=== PATIENT | male | born 1935 | race Caucasian/White ===

== ENCOUNTER → 2016-07-28 | Outpatient (CLI) | payer OTHER ==
[2016-02-02 11:39] VITALS: BP 143/71
[2016-07-28 10:08] LABS: BASOPHILS % (AUTO) 0.4 % (0.2-1.0); EOSINOPHILS # (AUTO) 0.3 x10^3/uL (0.0-0.2); EOSINOPHILS % (AUTO) 4.8 % (0.9-2.9); HEMATOCRIT 40.6 % (42.0-54.0); HEMOGLOBIN 13.4 g/dL (13.5-18.0); LYMPHOCYTES # (AUTO) 1.4 X10^3/uL (1.3-2.9); LYMPHOCYTES % (AUTO) 20.9 % (21.0-51.0); MEAN CORPUSCULAR HEMOGLOBIN 31.6 pg (27.0-34.0); MEAN CORPUSCULAR HGB CONC 33.1 g/dL (33.0-35.0); MEAN CORPUSCULAR VOLUME 95.5 fL (80.0-100.0); MEAN PLATELET VOLUME 9.4 fL (7.4-11.0); MONOCYTES # (AUTO) 0.6 x10^3/uL (0.3-0.8); MONOCYTES % (AUTO) 9.1 % (0.0-13.0); NEUTROPHILS # (AUTO) 4.4 x10^3/uL (2.2-4.8); NEUTROPHILS % (AUTO) 64.8 % (42.0-75.0); PLATELET COUNT 122 X10^3/uL (150.0-450.0); RED BLOOD COUNT 4.25 X10^6/uL (4.7-6.0); RED CELL DISTRIBUTION WIDTH 15.6 % (11.6-16.5); WHITE BLOOD COUNT 6.7 X10^3/uL (3.6-10.0)
[2016-07-28 10:16] LABS: HEMOGLOBIN A1C 8.3 % (4.5-6.2)
[2016-07-28 10:18] LABS: CREATININE,URINE 65.23 mg/dL (40-278)
[2016-07-28 10:23] LABS: ALBUMIN 3.3 g/dL (3.4-5.0); C-REACTIVE PROTEIN 5.2 mg/L (0-3.0); CALCIUM 9.2 mg/dL (8.5-10.1); CARBON DIOXIDE 27.3 mmol/L (21-32); CHOL/HDL RATIO 3.6 (0.0-5.0); COR CA(FOR HYPOALB) 9.8 mg/dL (8.5-10.1); CREATININE 1.93 mg/dL (0.70-1.30); TOTAL PROTEIN 7.3 g/dL (6.4-8.2); URIC ACID 7.6 mg/dL (3.5-7.2)
[2016-07-28 10:43] LABS: TOTAL PSA 7.3 ng/mL (0.13-4.0)
[2016-07-28 10:55] LABS: ERYTHROCYTE SEDIMENTATION RATE 8 MM/HOUR (0-15)
== END ==
LOC: LAB 09:23
PROVIDERS: ATTEND Nurse Practitioner Family
DX: E11.40 Type 2 diabetes mellitus with diabetic neuropathy, unspecified (principal); I10 Essential (primary) hypertension; R97.20 Elevated prostate specific antigen [PSA]; M10.9 Gout, unspecified
CPT/HCPCS: 36415; 80053; 80061; 82043; 83036; 84153; 84550; 85025; 85652; 86140

== ENCOUNTER 2016-08-09 09:14 | Emergency (ER) | payer OTHER ==
[2016-08-09 09:20] VITALS: BP 88/57; BMI 25.3
--- NOTE | 2016-08-09 09:30 | DR.GENAD ---
HPI - PCP Primary Care Physician: constance - HPI Comment HPI Comment: WORSE TODAY. PATIENT ON PAIN MEDICATION AT HOME BUT STILL IN PAIN. NO NEW INJURY. - Complaint/Symptoms Chief Complaint Doctors Comments: FELL 3 WEEKS AGO. LT KNEE AND LEFT HIP PAIN SINCE. Chief Complaint:: family stated he fell 2-3 weeks ago and has been having right hip and right knee pain. - Nurses notes reviewed Nurses Notes Review: Yes - Source History Provided: Family Member - Mode of Arrival Mode of Arrival: Wheelchair - Timing Onset of Chief Complaint: 07/19/16 Came on: Suddenly - Duration Duration: Constant Duration: Days - Severity Severity: Moderate PMH - PMH Past Medical History: Yes Past Medical History: Arthritis, Asthma, COPD, Coronary Artery Disease, Dementia , Diabetes, Dyslipidemia, Hypertension, [place] Past Surgical History: Yes Surgical History: Angioplasty/Stents, CABG/Valve Surgery, Ortho Surgery, Tonsillectomy - Family History History of Family Medical Conditions: Yes Family Medical History: Diabetes Mellitus, [place], Coronary Artery Disease - Social History Does patient currently use any type of tobacco product: No Have you used tobacco products in the last 12 months: No Type of Tobacco Use: None Does any household member use tobacco: No Alcohol Use: None Do you use any recreational Drugs:: No Lives With: Family Lives Where: Home - infectious screening In the last 2 months have you had wt loss of >10#?: NO Have you had fever, night sweats or hemotysis?: No Have you traveled outside the country in the last 6 months?: No Isolation: Standard ROS - Review of Systems Constitutional: Weakness, Fatigue. negative: Chills, Diaphoresis, Fever, Loss of Appetite Eyes: No Symptoms Reported. negative: Eye Pain, Discharge ENTM: negative: Ear Pain, Nose Discharge, Nose Congestion, Throat Pain Respiratoy: Short of Breath. negative: Productive Cough, Non-Productive Cough, Wheezing, Hemoptysis Cardiovascular: negative: Chest Pain Gastrointestinal/Abdominal: No Symptoms Reported. negative: Abdominal Pain, Nausea, Vomiting Genitourinary: negative: Dysuria, Hematuria Neurological: Weakness Musculoskeletal: Joint Pain, Joint Swelling, Muscle Pain Integumentary: No Symptoms Reported Hematologic/Lymphatic: Easy Bruising Endocrine: No Symptoms Reported All Other Systems: Reviewed and Negative PE - Vital Signs Vitals: Temperature 98.7 F Pulse Rate 59 Respiratory Rate 16 Blood Pressure [Right Arm] 181/97 Blood Pressure [Left Arm] 133/81 Blood Pressure 88/57 O2 Sat by Pulse Oximetry 100 - General Limitations: No Limitations General Appearance: Alert - Head Head Exam: Normal Inspection - Eyes Eye exam: Normal Appearance - ENT ENT Exam: Normal External Ear Exam External Ear Exam: Normal External Inspection TM/Canal Exam: Bilateral Normal Nose Exam: Normal Nose Exam Mouth Exam: Normal Inspection Throat Exam: Normal Inspection - Neck Neck Exam: Trachea Midline - Chest Chest Inspection: Symmetric Chest Wall Rise - Respiratory Respiratory Exam: Respiratory Distress. negative: Chest Wall Tenderness Respiratory Exam: Bilateral Rhonchi, Lower Rhonchi - Cardiovascular Cardiovascular Exam: Regular Rate, Normal Rhythm, Normal Heart Sounds - Abdominal Exam Abdominal Exam: Normal Bowel Sounds, Soft. negative: Tenderness - Extremities Extremities Exam: Tenderness (LEFT KNEE AND HIP), Joint Swelling (LEFT KNEE) - Back Back Exam: Paraspinal Tenderness - Neurologic Neurological Exam: Alert - Psychiatric Psychiatric Exam: Normal Affect, Normal Mood - Skin Skin Exam: Erythema (STASIS DERMATITIS.) MDM - Additional Information Additional Information Obtained From: Family - Differential Diagnosis Differential Diagnosis: RIGHT HIP PAIN, RIGHT KNEE PAIN, LOW BLOOD PRESSURE IN ED. Course - Treatment Treatment: SEE ORDERS - Education/Counseling Education/Counseling: Patient, Family, Education Educated On: Treatment, Diagnosis, Needs for Follow Up ROR - Labs Reviewed Laboratory Results Reviewed?: Yes Result Diagrams: 08/09/16 09:30 08/09/16 09:30 Laboratory: WBC 7.3 X10^3/uL (3.6-10.0) 08/09/16 09:30 RBC 4.33 X10^6/uL (4.7-6.0) L 08/09/16 09:30 Hgb 13.6 g/dL (13.5-18.0) 08/09/16 09:30 Hct 41.3 % (42.0-54.0) L 08/09/16 09:30 MCV 95.3 fL (80.0-100.0) 08/09/16 09:30 MCH 31.4 pg (27.0-34.0) 08/09/16 09:30 MCHC 33.0 g/dL (33.0-35.0) 08/09/16 09:30 RDW 14.8 % (11.6-16.5) 08/09/16 09:30 Plt Count 118 X10^3/uL (150.0-450.0) L 08/09/16 09:30 MPV 9.4 fL (7.4-11.0) 08/09/16 09:30 Neut % 62.5 % (42.0-75.0) 08/09/16 09:30 Lymph % 24.2 % (21.0-51.0) 08/09/16 09:30 [place] % 8.1 % (0.0-13.0) 08/09/16 09:30 Eos % 4.7 % (0.9-2.9) H 08/09/16 09:30 Baso % 0.5 % (0.2-1.0) 08/09/16 09:30 Neut # 4.6 x10^3/uL (2.2-4.8) 08/09/16 09:30 Lymph # 1.8 X10^3/uL (1.3-2.9) 08/09/16 09:30 [place] # 0.6 x10^3/uL (0.3-0.8) 08/09/16 09:30 Eos # 0.3 x10^3/uL (0.0-0.2) H 08/09/16 09:30 Baso # 0.0 X10^3/uL (0.0-0.1) 08/09/16 09:30 Absolute Nucleated RBC 0.0 /100WBC 08/09/16 09:30 Sodium 142 mmol/L (136-145) 08/09/16 09:30 Corrected Sodium 143 mmol/L (136-145) 08/09/16 09:30 Potassium 4.2 mmol/L (3.5-5.1) 08/09/16 09:30 Chloride 106 mmol/L (98-107) 08/09/16 09:30 Carbon Dioxide 26.3 mmol/L (21-32) 08/09/16 09:30 BUN 35 mg/dL (7-18) H 08/09/16 09:30 Creatinine 1.90 mg/dL (0.70-1.30) H 08/09/16 09:30 Est GFR (MDRD) Af Amer 44 (>60) L 08/09/16 09:30 Est GFR (MDRD) Non-Af 36 (>60) L 08/09/16 09:30 Glucose 129 mg/dL (65-99) H 08/09/16 09:30 Calcium 9.4 mg/dL (8.5-10.1) 08/09/16 09:30 Corrected Calcium 10.0 mg/dL (8.5-10.1) 08/09/16 09:30 Total Bilirubin 0.80 mg/dL (0.2-1.0) 08/09/16 09:30 AST 22 Units/L (15-37) 08/09/16 09:30 ALT 24 Units/L (12-78) 08/09/16 09:30 Alkaline Phosphatase 192 Units/L (46-116) H 08/09/16 09:30 Creatine Kinase 52 Units/L (39-308) 08/09/16 09:30 CK-MB (CK-2) 1.3 ng/mL (0-4.0) 08/09/16 09:30 CK/CKMB % Calc 2.5 % (<4) 08/09/16 09:30 Troponin I 0.03 ng/mL (0-1.5) 08/09/16 09:30 B-Natriuretic Peptide 84.9 pg/mL (0-79) H 08/09/16 09:30 Total Protein 7.1 g/dL (6.4-8.2) 08/09/16 09:30 Albumin 3.3 g/dL (3.4-5.0) L 08/09/16 09:30 Globulin 3.8 g/dL (2.5-4.5) 08/09/16 09:30 Albumin/Globulin Ratio 0.9 Ratio (1.1-2.1) L 08/09/16 09:30 - XRAY XRAY Interpreted by: Radiologist XRAY Findings: REPORT DISCUSS WITH PATIENT AND HIS . - EKG Rhythm: NSR (EKG NOTED) - Diagnosis Discharge Problem: Left hip pain Left knee pain Qualifiers: Chronicity: acute Qualified Code(s): M25.562 - Pain in left knee - Discharge Plan Disposition: HOME, SELF-CARE Condition: Stable - Follow ups/Referrals Follow ups/Referrals: Damon Coronado [Primary Care Provider] - 3 days - Instructions Instructions: Hip Pain, Knee Pain, [id number] Additional Instructions: RETURN TO ED IF WORSE. CONTINUE WITH PAIN MED AT HOME.
[2016-08-09 09:47] LABS: BASOPHILS % (AUTO) 0.5 % (0.2-1.0); EOSINOPHILS # (AUTO) 0.3 x10^3/uL (0.0-0.2); EOSINOPHILS % (AUTO) 4.7 % (0.9-2.9); HEMATOCRIT 41.3 % (42.0-54.0); HEMOGLOBIN 13.6 g/dL (13.5-18.0); LYMPHOCYTES # (AUTO) 1.8 X10^3/uL (1.3-2.9); LYMPHOCYTES % (AUTO) 24.2 % (21.0-51.0); MEAN CORPUSCULAR HEMOGLOBIN 31.4 pg (27.0-34.0); MEAN CORPUSCULAR VOLUME 95.3 fL (80.0-100.0); MEAN PLATELET VOLUME 9.4 fL (7.4-11.0); MONOCYTES # (AUTO) 0.6 x10^3/uL (0.3-0.8); MONOCYTES % (AUTO) 8.1 % (0.0-13.0); NEUTROPHILS # (AUTO) 4.6 x10^3/uL (2.2-4.8); NEUTROPHILS % (AUTO) 62.5 % (42.0-75.0); PLATELET COUNT 118 X10^3/uL (150.0-450.0); RED BLOOD COUNT 4.33 X10^6/uL (4.7-6.0); RED CELL DISTRIBUTION WIDTH 14.8 % (11.6-16.5); WHITE BLOOD COUNT 7.3 X10^3/uL (3.6-10.0)
[2016-08-09 10:00] LABS: CALCIUM 9.4 mg/dL (8.5-10.1); CARBON DIOXIDE 26.3 mmol/L (21-32); CREATININE 1.9 mg/dL (0.70-1.30); TROPONIN I 0.03 ng/mL (0-1.5)
[2016-08-09 10:04] LABS: ALBUMIN 3.3 g/dL (3.4-5.0); CKMB % 2.5 % (<4); CREATINE KINASE MB 1.3 ng/mL (0-4.0); TOTAL PROTEIN 7.1 g/dL (6.4-8.2)
--- NOTE | 2016-08-09 10:17 | RAD ---
HISTORY: Chest pain. Hypotension. Study: Single-view chest. Comparison: February 02, 2016 and April 03, 2015 Findings: The trachea is midline. The cardiac silhouette is within normal limits. There is a cardiac loop zayra rder on the left. There is a dual lead cardiac pacing device on the right. There has been previous m edian sternotomy and CABG. The lungs are underinflated with crowding of the interstitium and central pulmonary vasculature. There are unchanged patchy nonspecific opacities in both lung bases without pleural effusion or pneumothorax. The bony thorax is grossly unremarkable. IMPRESSION: Underinflated exam without acute cardiopulmonary process is evident. Patchy nonspecific bibasilar op acities are grossly unchanged. Reported By:
[2016-08-09 10:18] LABS: B-TYPE NATRIURETIC PEPTIDE 84.9 pg/mL (0-79)
--- NOTE | 2016-08-09 10:33 | RAD ---
HISTORY: Right knee pain. Complete two view series of the right knee joint. Findings: Examination of the knee joint demonstrate no evidence for acute fracture or dislocation. The medial and lateral tibiofemoral compartments demonstrate advanced and severe joint space narrowing and ost eophyte formation; most severe in the lateral knee compartment. There is also a degenerative appeari ng genu valgum deformity. The findings are compatible with moderate to severe degenerative joint dis ease. The lateral radiograph demonstrates a very small suprapatellar joint effusion. Patellofemora l compartment also shows moderate to severe DJD with chondromalacia patella. There is mild soft tiss ue swelling about the knee joint without underlying bony injury or fracture seen. No aggressive / de structive lytic bony lesions are seen. 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 No displaced fra cture, subluxation, or lytic bony lesion. Reported By:
--- NOTE | 2016-08-09 10:39 | RAD ---
HISTORY: Injury, fall, right hip pain Study: Right hip two view Comparison: None Findings: The pelvic bones and SI joints are intact. The hip joints are intact bilaterally. Mild degenerative joint space narrowing is present in both hips. No hip fractures are identified. No joint erosions ar e present. If the patient continues to be symptomatic CT or MRI could be obtained in order to detect a fracture that is radiographically occult. IMPRESSION: Degenerative joint space narrowing No definite fracture identified Reported By:
[2016-08-09] MEDS ORDERED: ZOFRAN INJ 4 MG VIAL IVP ONE (12:14)
[2016-08-09] MEDS ORDERED: MORPHINE SULFATE INJ 4 MG IVP ONE (12:14)
[2016-08-09] MEDS ORDERED: DECADRON INJ IV ONE (12:15)
[2016-08-09] MEDS ORDERED: DECADRON INJ ONE (12:18)
[2016-08-09] MEDS ORDERED: MORPHINE SULFATE INJ 4 MG ONE (12:18)
[2016-08-09] MEDS ORDERED: ZOFRAN INJ 4 MG VIAL ONE (12:18)
== END 2016-08-09 12:30 | disposition home or self-care (01) ==
LOC: ER 09:14
DX: M25.552 Pain in left hip (principal); M25.562 Pain in left knee; W19.XXXA Unspecified fall, initial encounter
CPT/HCPCS: 36415; 71010; 73501; 73560; 80053; 82550; 82553; 83880; 84484; 85025; 93005; 93010; 96365; 96374; 96375; 99282; 99283; A4222; J1100; J2270; J2405

== ENCOUNTER 2016-08-13 10:07 | Emergency (ER) | payer OTHER ==
[2016-08-13 10:16] VITALS: BP 129/66; BMI 23.6
[2016-08-13] MEDS ORDERED: NS 1000 ML 1,000 ML ONE (10:30)
--- NOTE | 2016-08-13 10:34 | DR.GENAD ---
HPI - PCP Primary Care Physician: Dr. Coronado - Complaint/Symptoms Chief Complaint Doctors Comments: Patient with urine incontinence for the past two days with fever yesterday and a 99.9 temp today as related by family member. States he fell last week with right knee and right hip pain with patient having problems walking since fall. Patient has Parkinson Disease and his say he has not been able to walk and her son had to pick him up and put him in the car to night. States he has had decreased appetite but denies epi,hematuria or chest pain. States he is seeing a vasacular surgeon for poor circulation in his left leg. states he is a patient of Dr. Coronado. Chief Complaint:: family stated patient has had a fever for the last 2 days and yesterday he started not being able to control his urination patient also was told last week he has no circulation to his left leg - Nurses notes reviewed Nurses Notes Review: Yes - Source History Provided: Family Member - Mode of Arrival Mode of Arrival: Wheelchair - Timing Onset of Chief Complaint: 08/11/16 Came on: Suddenly - Duration Duration: Constant How lon Duration: Days - Location Location: right knee and hip - Severity Severity: Moderate - Modifying Factors Worsens:: movement and palpation Improves:: nothing PMH - PMH Past Medical History: Yes Past Medical History: Arthritis, Asthma, COPD, Coronary Artery Disease, Dementia , Diabetes, Dyslipidemia, Hypertension, [place] Past Medical History Comment: parkinson Past Surgical History: Yes Surgical History: Angioplasty/Stents, CABG/Valve Surgery, Ortho Surgery, Tonsillectomy - Family History History of Family Medical Conditions: Yes Family Medical History: Diabetes Mellitus, [place], Coronary Artery Disease - Social History Does patient currently use any type of tobacco product: No Have you used tobacco products in the last 12 months: No Does any household member use tobacco: No Alcohol Use: None Do you use any recreational Drugs:: No Lives With: Family Lives Where: Home - infectious screening In the last 2 months have you had wt loss of >10#?: NO Have you had fever, night sweats or hemotysis?: No Have you traveled outside the country in the last 6 months?: No Isolation: Standard ROS - Review of Systems Constitutional: No Symptoms Reported, Fever, Weakness, Fatigue, Loss of Appetite. negative: See HPI, Chills, Diaphoresis, Malaise, Irritable, Other Eyes: No Symptoms Reported. negative: See HPI, Eye Pain, Blurred Vision, Tearing, Discharge, Photophobia, Diplopia, Other ENTM: No Symptoms Reported Respiratoy: No Symptoms Reported Cardiovascular: No Symptoms Reported. negative: See HPI, Chest Pain, Edema, Palpitations, Syncope, Cyanosis, Skin Mottling, Other Gastrointestinal/Abdominal: No Symptoms Reported, See HPI Genitourinary: No Symptoms Reported, See HPI, Discharge, Dysuria, Frequency, Hematuria, Pain, Bleeding, Other Neurological: No Symptoms Reported, Weakness, Problems Walking, Speech Problem Musculoskeletal: No Symptoms Reported Integumentary: No Symptoms Reported Hematologic/Lymphatic: No Symptoms Reported Endocrine: No Symptoms Reported, Decreased Appetite Psychiatric: No Symptoms Reported PE - Vital Signs Vitals: Temperature 99.1 F Pulse Rate 81 Respiratory Rate 20 Blood Pressure [Right Arm] 181/97 Blood Pressure [Left Arm] 133/81 Blood Pressure 129/66 O2 Sat by Pulse Oximetry 98 Course - Reevaluation 1st: Improved - Consultation Called: 13:07 Call Returned: 13:07 (Dr. Dumont accepted patient in transfer to ER) - Education/Counseling Education/Counseling: Patient, Family Educated On: Treatment, Diagnosis, Prognosis, Needs for Follow Up ROR - Labs Reviewed Laboratory Results Reviewed?: Yes (All labs and x-ray results reviewed and discussed with patient and ) Result Diagrams: 08/13/16 10:30 08/13/16 10:30 Laboratory: WBC 10.2 X10^3/uL (3.6-10.0) H 08/13/16 10:30 RBC 4.25 X10^6/uL (4.7-6.0) L 08/13/16 10:30 Hgb 13.5 g/dL (13.5-18.0) 08/13/16 10:30 Hct 40.4 % (42.0-54.0) L 08/13/16 10:30 MCV 95.2 fL (80.0-100.0) 08/13/16 10:30 MCH 31.7 pg (27.0-34.0) 08/13/16 10:30 MCHC 33.4 g/dL (33.0-35.0) 08/13/16 10:30 RDW 15.0 % (11.6-16.5) 08/13/16 10:30 Plt Count 99 X10^3/uL (150.0-450.0) L 08/13/16 10:30 MPV 9.9 fL (7.4-11.0) 08/13/16 10:30 Neut % 82.1 % (42.0-75.0) H 08/13/16 10:30 Lymph % 8.5 % (21.0-51.0) L 08/13/16 10:30 [place] % 8.7 % (0.0-13.0) 08/13/16 10:30 Eos % 0.4 % (0.9-2.9) L 08/13/16 10:30 Baso % 0.3 % (0.2-1.0) 08/13/16 10:30 Neut # 8.3 x10^3/uL (2.2-4.8) H 08/13/16 10:30 Lymph # 0.9 X10^3/uL (1.3-2.9) L 08/13/16 10:30 [place] # 0.9 x10^3/uL (0.3-0.8) H 08/13/16 10:30 Eos # 0.0 x10^3/uL (0.0-0.2) 08/13/16 10:30 Baso # 0.0 X10^3/uL (0.0-0.1) 08/13/16 10:30 Absolute Nucleated RBC 0.0 /100WBC 08/13/16 10:30 INR Target Range - 08/13/16 10:30 INR 1.03 (0.8-1.3) 08/13/16 10:30 PTT 31.6 SECONDS (22.9-36.5) 08/13/16 10:30 PTT Comment - 08/13/16 10:30 Sodium 139 mmol/L (136-145) 08/13/16 10:30 Corrected Sodium 141 mmol/L (136-145) 08/13/16 10:30 Potassium 4.1 mmol/L (3.5-5.1) 08/13/16 10:30 Chloride 104 mmol/L (98-107) 08/13/16 10:30 Carbon Dioxide 25.3 mmol/L (21-32) 08/13/16 10:30 BUN 33 mg/dL (7-18) H 08/13/16 10:30 Creatinine 2.05 mg/dL (0.70-1.30) H 08/13/16 10:30 Est GFR (MDRD) Af Amer 40 (>60) L 08/13/16 10:30 Est GFR (MDRD) Non-Af 33 (>60) L 08/13/16 10:30 Glucose 182 mg/dL (65-99) H 08/13/16 10:30 Calcium 9.0 mg/dL (8.5-10.1) 08/13/16 10:30 Corrected Calcium 9.8 mg/dL (8.5-10.1) 08/13/16 10:30 Magnesium 1.6 mg/dL (1.7-2.9) L 08/13/16 10:30 Total Bilirubin 1.50 mg/dL (0.2-1.0) H 08/13/16 10:30 AST 25 Units/L (15-37) 08/13/16 10:30 ALT 31 Units/L (12-78) 08/13/16 10:30 Alkaline Phosphatase 172 Units/L (46-116) H 08/13/16 10:30 Creatine Kinase 52 Units/L (39-308) 08/13/16 10:30 CK-MB (CK-2) < 1.0 ng/mL (0-4.0) 08/13/16 10:30 CK/CKMB % Calc 1.9 % (<4) 08/13/16 10:30 Troponin I 0.04 ng/mL (0-1.5) 08/13/16 10:30 Total Protein 6.8 g/dL (6.4-8.2) 08/13/16 10:30 Albumin 3.0 g/dL (3.4-5.0) L 08/13/16 10:30 Globulin 3.8 g/dL (2.5-4.5) 08/13/16 10:30 Albumin/Globulin Ratio 0.8 Ratio (1.1-2.1) L 08/13/16 10:30 Specimen Type Catherized urine 08/13/16 10:50 Urine Color Yellow (YELLOW) 08/13/16 10:50 Urine Appearance Hazy (CLEAR) 08/13/16 10:50 Urine pH 5.0 (5.0 - 8.0) 08/13/16 10:50 Ur Specific [place] 1.015 (1.000-1.030) 08/13/16 10:50 Urine Protein 2+ (NEGATIVE) 08/13/16 10:50 Urine Glucose (UA) Negative (NEGATIVE) 08/13/16 10:50 Urine Ketones Negative (NEGATIVE) 08/13/16 10:50 Urine Occult Blood 4+ (NEGATIVE) 08/13/16 10:50 Urine Nitrite Positive (NEGATIVE) 08/13/16 10:50 Urine Bilirubin Negative (NEGATIVE) 08/13/16 10:50 Urine Urobilinogen 1+ (NORMAL) 08/13/16 10:50 Ur Leukocyte Esterase 3+ (NEGATIVE) 08/13/16 10:50 Urine RBC 0-2 /HPF (NEGATIVE) 08/13/16 10:50 Urine WBC 50-75 /HPF (NEGATIVE) 08/13/16 10:50 Ur Squamous Epith Cells Negative /HPF (NEGATIVE) 08/13/16 10:50 Urine Bacteria Trace /HPF (NEGATIVE) 08/13/16 10:50 Ur Culture Indicated? Yes/culture set up 08/13/16 10:50 - XRAY XRAY Interpreted by: Radiologist (CT cervical spine:Findings suspicious for rotatory subluxation of C1-2) XRAY Findings: right knee: Advanced and severe right knee joint tricompartmental osteoarth - Diagnosis Discharge Problem: Subluxation of C1/c2 cervical vertebrae, initial encounter, Degenerative arthritis of cervical spine, Left hemiparesis, Urinary tract infection, Hyperglycemia, Peripheral vascular disease Fall Qualifiers: Encounter type: initial encounter Qualified Code(s): W19.XXXA - Unspecified fall, initial encounter Chronic kidney disease Qualifiers: Chronic kidney disease stage: stage 3 (moderate) Qualified Code(s): N18.3 - Chronic kidney disease, stage 3 (moderate) - Discharge Plan Disposition: 63 DIS ACTUE [facility] CARE Condition: Stable - Follow ups/Referrals Follow ups/Referrals: Damon Coronado [Primary Care Provider] - 3 days - Instructions
[2016-08-13 10:50] LABS: BASOPHILS % (AUTO) 0.3 % (0.2-1.0); EOSINOPHILS % (AUTO) 0.4 % (0.9-2.9); HEMATOCRIT 40.4 % (42.0-54.0); HEMOGLOBIN 13.5 g/dL (13.5-18.0); LYMPHOCYTES # (AUTO) 0.9 X10^3/uL (1.3-2.9); LYMPHOCYTES % (AUTO) 8.5 % (21.0-51.0); MEAN CORPUSCULAR HEMOGLOBIN 31.7 pg (27.0-34.0); MEAN CORPUSCULAR HGB CONC 33.4 g/dL (33.0-35.0); MEAN CORPUSCULAR VOLUME 95.2 fL (80.0-100.0); MEAN PLATELET VOLUME 9.9 fL (7.4-11.0); MONOCYTES # (AUTO) 0.9 x10^3/uL (0.3-0.8); MONOCYTES % (AUTO) 8.7 % (0.0-13.0); NEUTROPHILS # (AUTO) 8.3 x10^3/uL (2.2-4.8); NEUTROPHILS % (AUTO) 82.1 % (42.0-75.0); PLATELET COUNT 99 X10^3/uL (150.0-450.0); RED BLOOD COUNT 4.25 X10^6/uL (4.7-6.0); WHITE BLOOD COUNT 10.2 X10^3/uL (3.6-10.0)
[2016-08-13 10:56] LABS: BILIRUBIN,URINE NEGATIVE (NEGATIVE); BLOOD/HEMOGLOBIN,URINE 4+ (NEGATIVE); GLUCOSE, URINE NEGATIVE (NEGATIVE); KETONES,URINE NEGATIVE (NEGATIVE); LEUKOCYTE ESTERASE ,URINE 3+ (NEGATIVE); NITRITES,URINE POSITIVE (NEGATIVE); PROTEIN,URINE 2+ (NEGATIVE); UROBILINOGEN,URINE 1+ (NORMAL)
[2016-08-13] MEDS ORDERED: NS 1000 ML 1,000 ML IV SCH (11:00)
[2016-08-13 11:03] LABS: BLOOD UREA NITROGEN 33 mg/dL (7-18); CARBON DIOXIDE 25.3 mmol/L (21-32); CHLORIDE 104 mmol/L (98-107); COR NA(FOR HYPERGLY) 141 mmol/L (136-145); CREATININE 2.05 mg/dL (0.70-1.30); GLUCOSE 182 mg/dL (65-99); SODIUM 139 mmol/L (136-145); TROPONIN I 0.04 ng/mL (0-1.5); eGFR BLACK RACES 40 (>60); eGFR NON BLACK RACES 33 (>60)
[2016-08-13 11:07] LABS: ALANINE AMINOTRANSFERASE 31 Units/L (12-78); ALKALINE PHOSPHATASE 172 Units/L (46-116); ASPARTATE AMINO TRANSFERASE 25 Units/L (15-37); COR CA(FOR HYPOALB) 9.8 mg/dL (8.5-10.1); CREATINE KINASE 52 Units/L (39-308); CREATINE KINASE MB < 1.0 ng/mL (0-4.0); MAGNESIUM 1.6 mg/dL (1.7-2.9); TOTAL PROTEIN 6.8 g/dL (6.4-8.2)
[2016-08-13 11:09] LABS: CKMB % 1.9 % (<4)
[2016-08-13 11:16] LABS: APPEARANCE,URINE HAZY (CLEAR); BACTERIA,URINE TRACE /HPF (NEGATIVE); COLOR,URINE YELLOW (YELLOW); RBC,URINE 0-2 /HPF (NEGATIVE); SQUAMOUS EPITHELIAL CELL,UR NEGATIVE /HPF (NEGATIVE)
[2016-08-13] MEDS ORDERED: LEVAQUIN PREMIX IV 500 MG 500 MG/100 ML BAG IV ONE ×2 (11:27→13:31)
--- NOTE | 2016-08-13 12:07 | CT ---
HISTORY: Fall, AMS, weakness Study: Noncontrast CT brain Comparison: 01/14 and February 02, 2016. Technique: non contrasted CT images of the brain are reviewed in axial, coronal and sagittal planes. Dose reduction techniques utilized automatic exposure control. Findings: The bony calvarium is intact. Atrophic changes are present with prominent ventricles and accentuatio n of cortical sulci. There is no evidence of edema, mass or hemorrhage. No midline shift is seen. At rophic changes are also present involving the cerebellum. There are again changes of periventricular and subcortical microangiopathy. IMPRESSION: No acute intracranial abnormality. Reported By:
--- NOTE | 2016-08-13 12:24 | CT ---
HISTORY: Status post fall with weakness Study: CT cervical spine without contrast Comparison: No prior CT Technique: Multiple axial images of the cervical spine were obtained from the skull base to the thor acic inlet without administration of IV contrast. Sagittal and coronal reformats were performed and reviewed. AEC was utilized. Findings: No acute cortical disruption is identified. There is advanced multilevel discogenic degenerative dis ease and facet arthropathy without spondylolisthesis. However, there is abnormal alignment of C1 on C2 on the left best seen on the sagittal sequence with anterior translation of the lateral mass of C 2 in relation to C1 most consistent with a rotatory subluxation. These findings can be posttraumatic , but note is made of extensive DJD at the atlantoaxial junction at the level of the dens with some degree of pannus formation which can be seen in rheumatoid arthritis and which can result in chronic rotatory subluxation. Close clinical correlation and follow up are recommended. MRI would be ideal, but MRI is precluded in this patient with a cardiac pacing device. Incidental note is made of air w ithin the subclavian veins for which correlation with a it recent intravenous access is recommended. IMPRESSION: Findings suspicious for rotatory subluxation of C1-2 which can be an acute or chronic finding as det hayley above. Orthopedic or neurosurgical consultation should be considered. Reported By:
--- NOTE | 2016-08-13 15:17 | RAD ---
HISTORY: Status post fall with pain Study: Single-view pelvis Comparison: August 09, 2016 Findings: There is suboptimal positioning, and an occult right hip fracture cannot be reliably excluded if the patient is unable to bear weight with generalized osteopenia. Additionally, there are equivocal pa rasymphyseal bilateral superior pubic rami fractures versus overlapping soft tissues with suboptimal positioning again noted. There are degenerative changes within the bilateral hips. Lumbar spondylos is is noted. IMPRESSION: Suboptimal positioning in the setting of osteopenia with a cold right femoral and pubic rami fractur es not excluded if the patient is unable to bear weight or in the setting of point tenderness and in which case CT should be considered. Reported By:
--- NOTE | 2016-08-13 15:19 | RAD ---
HISTORY: Status post fall with right hip pain Study: Four views right femur Comparison: August 09, 2016 Findings: The femoral shaft appears intact. There is generalized osteopenia. There is suboptimal visualizatio n of the right femoral head and neck. CT of the bony pelvis should be considered if the patient is u nable to bear weight. There are degenerative changes within the right hip and knee. Diffuse vascular calcifications are noted. There are surgical clips in the medial posterior knee and right groin. IMPRESSION: Suboptimal visualization of the right hip in the setting of generalized osteopenia. If the patient i s unable to bear weight, CT should be considered. Chronic changes as above. Reported By:
--- NOTE | 2016-08-13 15:23 | RAD ---
HISTORY: Status post fall with knee pain Study: Three views right knee Comparison: August 09, 2016 Findings: No evidence for acute cortical disruption or dislocation. There is severe tricompartmental DJD. Th ere is no effusion. There is generalized osteopenia without a focal destructive lesion. Diffuse desc ending arterial vascular calcifications are noted with multiple surgical clips noted in the medial p osterior leg perhaps from previous vein harvesting.. IMPRESSION: No acute bony radiographic abnormality. Reported By:
--- NOTE | 2016-08-13 15:26 | RAD ---
HISTORY: Status post fall Study: Single-view chest Comparison: August 09, 2016 and additional priors dating back to January 01, 2016 Findings: Prior sternotomy and a cardiac pacing device are noted. The trachea is midline. The cardiac silhoue tte is borderline enlarged when considering the AP technique. There is chronic appearing interstiti al thickening some of which is secondary to low lung volumes without new lobar mass or consolidation . There is scarring in the right lung base. There is no effusion or pneumothorax. There are degene rative changes within the shoulder without acute angulation of the bony thorax. IMPRESSION: No definite acute cardiopulmonary disease. Reported By:
== END 2016-08-13 14:13 | disposition short-term general hospital (02) ==
LOC: ER 10:07
DX: S13.120A Subluxation of C1/C2 cervical vertebrae, initial encounter (principal); N18.3 Chronic kidney disease, stage 3 (moderate); M47.812 Spondylosis without myelopathy or radiculopathy, cervical region; N39.0 Urinary tract infection, site not specified; A04.8 Other specified bacterial intestinal infections
CPT/HCPCS: 36415; 51702; 70450; 71010; 72125; 72170; 73552; 73564; 80053; 81001; 82550; 82553; 83735; 84484; 85025; 85610; 85730; 87086; 87088; 87186; 93005; 93010; 96365; 96374; 99283; 99285; A4222; J1956

== ENCOUNTER → 2016-11-15 | Outpatient (CLI) | payer OTHER ==
[2016-11-15 14:35] LABS: HEMOGLOBIN A1C 8.3 % (4.5-6.2)
[2016-11-15 14:37] LABS: ALBUMIN 3.2 g/dL (3.4-5.0); C-REACTIVE PROTEIN 2.8 mg/L (0-3.0); CALCIUM 9.3 mg/dL (8.5-10.1); CARBON DIOXIDE 27.1 mmol/L (21-32); COR CA(FOR HYPOALB) 9.9 mg/dL (8.5-10.1); CREATININE 2.33 mg/dL (0.70-1.30); TOTAL PROTEIN 7.3 g/dL (6.4-8.2); URIC ACID 6.5 mg/dL (3.5-7.2)
[2016-11-15 14:41] LABS: CREATININE,URINE 108.96 mg/dL (40-278); MICROALBUMIN,URINE 43.5 mg/L
[2016-11-15 15:05] LABS: ERYTHROCYTE SEDIMENTATION RATE 8 MM/HOUR (0-15)
[2016-11-15 15:07] LABS: BASOPHILS % (AUTO) 0.4 % (0.2-1.0); EOSINOPHILS # (AUTO) 0.2 x10^3/uL (0.0-0.2); EOSINOPHILS % (AUTO) 3.8 % (0.9-2.9); HEMATOCRIT 39.6 % (42.0-54.0); HEMOGLOBIN 13.3 g/dL (13.5-18.0); LYMPHOCYTES # (AUTO) 1.7 X10^3/uL (1.3-2.9); LYMPHOCYTES % (AUTO) 26.1 % (21.0-51.0); MEAN CORPUSCULAR HEMOGLOBIN 32.4 pg (27.0-34.0); MEAN CORPUSCULAR HGB CONC 33.6 g/dL (33.0-35.0); MEAN CORPUSCULAR VOLUME 96.5 fL (80.0-100.0); MEAN PLATELET VOLUME 9.8 fL (7.4-11.0); MONOCYTES # (AUTO) 0.5 x10^3/uL (0.3-0.8); MONOCYTES % (AUTO) 8.3 % (0.0-13.0); NEUTROPHILS % (AUTO) 61.4 % (42.0-75.0); PLATELET COUNT 122 X10^3/uL (150.0-450.0); RED BLOOD COUNT 4.11 X10^6/uL (4.7-6.0); RED CELL DISTRIBUTION WIDTH 16.3 % (11.6-16.5); WHITE BLOOD COUNT 6.5 X10^3/uL (3.6-10.0)
== END ==
LOC: LAB 13:41
PROVIDERS: ATTEND Nurse Practitioner Family
DX: I10 Essential (primary) hypertension (principal); E55.9 Vitamin D deficiency, unspecified; E11.40 Type 2 diabetes mellitus with diabetic neuropathy, unspecified; E79.0 Hyperuricemia without signs of inflammatory arthritis and tophaceous disease; R97.20 Elevated prostate specific antigen [PSA]
CPT/HCPCS: 36415; 80053; 82043; 82306; 83036; 84153; 84154; 84550; 85025; 85652; 86140

== ENCOUNTER 2017-02-06 11:51 | Emergency (ER) | payer OTHER ==
[2017-02-06 11:56] VITALS: BP 120/72; BMI 25.2
--- NOTE | 2017-02-06 13:36 | DR.GENAD ---
HPI - PCP Primary Care Physician: DAVID FIELD - Complaint/Symptoms Chief Complaint Doctors Comments: History as stated. There is no history of seizure disorder. Chief Complaint:: PATIENT STATED THAT HE GOT DIZZY AND HIS EYES ROLLED BACK AND HE STARTED SHAKING. PATIENT FAMILY STATED THAT HIS BS 230. - Source History Provided: Patient, Family Member - Mode of Arrival Mode of Arrival: Wheelchair - Timing Onset of Chief Complaint: 02/06/17 PMH - PMH Past Medical History: Yes Past Medical History: Arthritis, Asthma, COPD, Coronary Artery Disease, Dementia , Diabetes, Dyslipidemia, Hypertension, [place] Past Surgical History: Yes Surgical History: Angioplasty/Stents, CABG/Valve Surgery, Ortho Surgery, Tonsillectomy - Family History History of Family Medical Conditions: Yes Family Medical History: Diabetes Mellitus, [place], Coronary Artery Disease - Social History Does patient currently use any type of tobacco product: No Have you used tobacco products in the last 12 months: No Does any household member use tobacco: No Alcohol Use: None Do you use any recreational Drugs:: No Lives With: Family Lives Where: Home - infectious screening In the last 2 months have you had wt loss of >10#?: NO Have you had fever, night sweats or hemotysis?: No Have you traveled outside the country in the last 6 months?: No Isolation: Standard ROS - Review of Systems Eyes: No Symptoms Reported ENTM: No Symptoms Reported Respiratoy: No Symptoms Reported Cardiovascular: No Symptoms Reported Gastrointestinal/Abdominal: No Symptoms Reported Genitourinary: No Symptoms Reported Neurological: No Symptoms Reported Musculoskeletal: No Symptoms Reported Integumentary: No Symptoms Reported Hematologic/Lymphatic: No Symptoms Reported Endocrine: No Symptoms Reported Psychiatric: No Symptoms Reported All Other Systems: Reviewed and Negative PE - Vital Signs Vitals: Temperature 97.9 F Pulse Rate 103 Respiratory Rate 20 Blood Pressure [Right Arm] 181/97 Blood Pressure [Left Arm] 133/81 Blood Pressure 120/72 O2 Sat by Pulse Oximetry 97 - General General Appearance: Alert, In No Apparent Distress - Head Head Exam: Normal Inspection, Atraumatic - Eyes Eye exam: Normal Appearance, PERRL, EOMI - ENT ENT Exam: Normal Exam External Ear Exam: Normal External Inspection TM/Canal Exam: Bilateral Normal Nose Exam: Normal Nose Exam Mouth Exam: Normal Inspection Throat Exam: Normal Inspection - Neck Neck Exam: Normal Inspection - Chest Chest Inspection: Normal Inspection - Respiratory Respiratory Exam: Normal Lung Sounds Bilat Respiratory Exam: Bilateral Clear to Auscultation - Cardiovascular Cardiovascular Exam: Regular Rate, Normal Rhythm - Abdominal Exam Abdominal Exam: Normal Inspection, Normal Bowel Sounds Abdominal Tenderness: negative: RUQ, RLQ, LUQ, LLQ, Epigastrium, Suprapubic, Diffuse, Mild, Moderate, Severe, Other - Extremities Extremities Exam: Normal Inspection, Full ROM - Back Back Exam: Normal Inspection, Full ROM - Neurologic Neurological Exam: Alert, Oriented X3, CN II-XII Intact - Psychiatric Psychiatric Exam: Normal Affect - Skin Skin Exam: Warm, Dry, Intact Course - Reevaluation 1st: Improved ROR - Labs Reviewed Result Diagrams: 02/06/17 13:46 02/06/17 13:46 Laboratory: WBC 9.3 X10^3/uL (3.6-10.0) 02/06/17 13:46 RBC 3.99 X10^6/uL (4.7-6.0) L 02/06/17 13:46 Hgb 13.3 g/dL (13.5-18.0) L 02/06/17 13:46 Hct 39.4 % (42.0-54.0) L 02/06/17 13:46 MCV 98.7 fL (80.0-100.0) 02/06/17 13:46 MCH 33.4 pg (27.0-34.0) 02/06/17 13:46 MCHC 33.8 g/dL (33.0-35.0) 02/06/17 13:46 RDW 14.6 % (11.6-16.5) 02/06/17 13:46 Plt Count 100 X10^3/uL (150.0-450.0) L 02/06/17 13:46 MPV 9.6 fL (7.4-11.0) 02/06/17 13:46 Neut % 78.7 % (42.0-75.0) H 02/06/17 13:46 Lymph % 12.3 % (21.0-51.0) L 02/06/17 13:46 [place] % 7.0 % (0.0-13.0) 02/06/17 13:46 Eos % 1.6 % (0.9-2.9) 02/06/17 13:46 Baso % 0.4 % (0.2-1.0) 02/06/17 13:46 Neut # 7.4 x10^3/uL (2.2-4.8) H 02/06/17 13:46 Lymph # 1.2 X10^3/uL (1.3-2.9) L 02/06/17 13:46 [place] # 0.7 x10^3/uL (0.3-0.8) 02/06/17 13:46 Eos # 0.2 x10^3/uL (0.0-0.2) 02/06/17 13:46 Baso # 0.0 X10^3/uL (0.0-0.1) 02/06/17 13:46 Absolute Nucleated RBC 0.0 /100WBC 02/06/17 13:46 Sodium 139 mmol/L (136-145) 02/06/17 13:46 Corrected Sodium 143 mmol/L (136-145) 02/06/17 13:46 Potassium 4.5 mmol/L (3.5-5.1) 02/06/17 13:46 Chloride 104 mmol/L (98-107) 02/06/17 13:46 Carbon Dioxide 25.5 mmol/L (21-32) 02/06/17 13:46 BUN 31 mg/dL (7-18) H 02/06/17 13:46 Creatinine 1.91 mg/dL (0.70-1.30) H 02/06/17 13:46 Est GFR (MDRD) Af Amer 43 (>60) L 02/06/17 13:46 Est GFR (MDRD) Non-Af 36 (>60) L 02/06/17 13:46 Glucose 270 mg/dL (65-99) H 02/06/17 13:46 Calcium 8.8 mg/dL (8.5-10.1) 02/06/17 13:46 Corrected Calcium 9.5 mg/dL (8.5-10.1) 02/06/17 13:46 Total Bilirubin 0.60 mg/dL (0.2-1.0) 02/06/17 13:46 AST 24 Units/L (15-37) 02/06/17 13:46 ALT 29 Units/L (12-78) 02/06/17 13:46 Alkaline Phosphatase 179 Units/L (46-116) H 02/06/17 13:46 Total Protein 6.7 g/dL (6.4-8.2) 02/06/17 13:46 Albumin 3.1 g/dL (3.4-5.0) L 02/06/17 13:46 Globulin 3.6 g/dL (2.5-4.5) 02/06/17 13:46 Albumin/Globulin Ratio 0.9 Ratio (1.1-2.1) L 02/06/17 13:46 Specimen Type Clean catch urine 02/06/17 15:13 Urine Color Yellow (YELLOW) 02/06/17 15:13 Urine Appearance Hazy (CLEAR) 02/06/17 15:13 Urine pH 5.0 (5.0 - 8.0) 02/06/17 15:13 Ur Specific [place] 1.020 (1.000-1.030) 02/06/17 15:13 Urine Protein 2+ (NEGATIVE) 02/06/17 15:13 Urine Glucose (UA) 3+ (NEGATIVE) 02/06/17 15:13 Urine Ketones Negative (NEGATIVE) 02/06/17 15:13 Urine Occult Blood 2+ (NEGATIVE) 02/06/17 15:13 Urine Nitrite Positive (NEGATIVE) 02/06/17 15:13 Urine Bilirubin Negative (NEGATIVE) 02/06/17 15:13 Urine Urobilinogen Normal (NORMAL) 02/06/17 15:13 Ur Leukocyte Esterase 3+ (NEGATIVE) 02/06/17 15:13 Urine RBC 5-10 /HPF (NEGATIVE) 02/06/17 15:13 Urine WBC Tntc /HPF (NEGATIVE) 02/06/17 15:13 Ur Squamous Epith Cells Few /HPF (NEGATIVE) 02/06/17 15:13 Urine Bacteria 1+ /HPF (NEGATIVE) 02/06/17 15:13 Ur Culture Indicated? Yes/culture set up 02/06/17 15:13 - XRAY XRAY Interpreted by: Radiologist (CT head w/o: There is no interval change. The ventricles and sulci are prominent, commensurate with the patient;s age. There is no hemorrhage or mass or edema or subdural collection of fluid. The calvariium is intact. The paranasal sinuses are clear. Impression: No interval change and no acute disease.) - Diagnosis Discharge Problem: Dehydration, mild, UTI (urinary tract infection) - Discharge Plan Condition: Stable - Follow ups/Referrals Follow ups/Referrals: DAVID FIELD [Primary Care Provider] - 3 days - Instructions
[2017-02-06 13:57] LABS: BASOPHILS % (AUTO) 0.4 % (0.2-1.0); EOSINOPHILS # (AUTO) 0.2 x10^3/uL (0.0-0.2); EOSINOPHILS % (AUTO) 1.6 % (0.9-2.9); HEMATOCRIT 39.4 % (42.0-54.0); HEMOGLOBIN 13.3 g/dL (13.5-18.0); LYMPHOCYTES # (AUTO) 1.2 X10^3/uL (1.3-2.9); LYMPHOCYTES % (AUTO) 12.3 % (21.0-51.0); MEAN CORPUSCULAR HEMOGLOBIN 33.4 pg (27.0-34.0); MEAN CORPUSCULAR HGB CONC 33.8 g/dL (33.0-35.0); MEAN CORPUSCULAR VOLUME 98.7 fL (80.0-100.0); MEAN PLATELET VOLUME 9.6 fL (7.4-11.0); MONOCYTES # (AUTO) 0.7 x10^3/uL (0.3-0.8); NEUTROPHILS # (AUTO) 7.4 x10^3/uL (2.2-4.8); NEUTROPHILS % (AUTO) 78.7 % (42.0-75.0); PLATELET COUNT 100 X10^3/uL (150.0-450.0); RED BLOOD COUNT 3.99 X10^6/uL (4.7-6.0); RED CELL DISTRIBUTION WIDTH 14.6 % (11.6-16.5); WHITE BLOOD COUNT 9.3 X10^3/uL (3.6-10.0)
[2017-02-06 14:04] LABS: ALBUMIN 3.1 g/dL (3.4-5.0); CALCIUM 8.8 mg/dL (8.5-10.1); CARBON DIOXIDE 25.5 mmol/L (21-32); COR CA(FOR HYPOALB) 9.5 mg/dL (8.5-10.1); CREATININE 1.91 mg/dL (0.70-1.30); TOTAL PROTEIN 6.7 g/dL (6.4-8.2)
--- NOTE | 2017-02-06 14:16 | CT ---
History: Dizziness and syncope and seizure Study: CT head without contrast. Sagittal and coronal reformations were provided. Comparison: August 13, 2016 Findings: There is no interval change. The ventricles and sulci are prominent, commensurate with the patient's age. There is no hemorrhage or mass or edema or subdural collection of fluid. The calvarium is intact. The paranasal sinuses are clear. Impression: No interval change and no acute disease. Reported By:
[2017-02-06] MEDS ORDERED: NS 1000 ML 1,000 ML IV ONE (14:30)
[2017-02-06] MEDS ORDERED: NS 1000 ML 1,000 ML ONE (14:52)
[2017-02-06 15:22] LABS: BILIRUBIN,URINE NEGATIVE (NEGATIVE); BLOOD/HEMOGLOBIN,URINE 2+ (NEGATIVE); GLUCOSE, URINE 3+ (NEGATIVE); KETONES,URINE NEGATIVE (NEGATIVE); LEUKOCYTE ESTERASE ,URINE 3+ (NEGATIVE); NITRITES,URINE POSITIVE (NEGATIVE); PROTEIN,URINE 2+ (NEGATIVE); UROBILINOGEN,URINE NORMAL (NORMAL)
[2017-02-06 15:34] LABS: APPEARANCE,URINE HAZY (CLEAR); BACTERIA,URINE 1+ /HPF (NEGATIVE); COLOR,URINE YELLOW (YELLOW); SQUAMOUS EPITHELIAL CELL,UR FEW /HPF (NEGATIVE)
[2017-02-06] MEDS ORDERED: LEVAQUIN TAB 500 MG ONE (16:26)
[2017-02-06] MEDS ORDERED: LEVAQUIN TAB 250 MG ONE (16:26)
[2017-02-06] MEDS ORDERED: LEVAQUIN TAB 750 MG PO SCH (17:00)
== END 2017-02-06 16:36 | disposition home or self-care (01) ==
LOC: ER 12:05
DX: R42 Dizziness and giddiness (principal); N39.0 Urinary tract infection, site not specified; B96.89 Other specified bacterial agents as the cause of diseases classified elsewhere
CPT/HCPCS: 36415; 70450; 80053; 81001; 85025; 87086; 87088; 87186; 96365; 99283; A4222

== ENCOUNTER → 2017-06-19 | Outpatient (CLI) | payer OTHER ==
[2017-06-19 11:22] LABS: CREATININE,URINE 196.25 mg/dL (40-278); MICROALBUMIN,URINE 57.3 mg/L
[2017-06-19 11:29] LABS: ALBUMIN 3.7 g/dL (3.4-5.0); ALKALINE PHOSPHATASE 208 Units/L (46-116); ASPARTATE AMINO TRANSFERASE 21 Units/L (15-37); BLOOD UREA NITROGEN 31 mg/dL (7-18); CALCIUM 9.4 mg/dL (8.5-10.1); CARBON DIOXIDE 28.7 mmol/L (21-32); CHLORIDE 107 mmol/L (98-107); CHOL/HDL RATIO 3.7 (0.0-5.0); CHOLESTEROL 130 mg/dL (0-200); COR NA(FOR HYPERGLY) 145 mmol/L (136-145); CREATININE 1.86 mg/dL (0.70-1.30); HDL CHOLESTEROL 35 mg/dL (40-60); SODIUM 143 mmol/L (136-145); TOTAL PROTEIN 8.5 g/dL (6.4-8.2); TRIGLYCERIDES 92 mg/dL (0-150); URIC ACID 7.2 mg/dL (3.5-7.2); eGFR BLACK RACES 45 (>60); eGFR NON BLACK RACES 37 (>60)
[2017-06-19 11:38] LABS: ALANINE AMINOTRANSFERASE 25 Units/L (12-78)
[2017-06-19 11:57] LABS: TOTAL PSA 11.99 ng/mL (0.13-4.0)
[2017-06-19 12:45] LABS: BASOPHILS % (AUTO) 0.5 % (0.2-1.0); EOSINOPHILS # (AUTO) 0.2 x10^3/uL (0.0-0.2); HEMATOCRIT 42.2 % (42.0-54.0); HEMOGLOBIN 14.4 g/dL (13.5-18.0); LYMPHOCYTES # (AUTO) 1.3 X10^3/uL (1.3-2.9); LYMPHOCYTES % (AUTO) 16.9 % (21.0-51.0); MEAN CORPUSCULAR HEMOGLOBIN 32.9 pg (27.0-34.0); MEAN CORPUSCULAR HGB CONC 34.1 g/dL (33.0-35.0); MEAN CORPUSCULAR VOLUME 96.3 fL (80.0-100.0); MEAN PLATELET VOLUME 9.1 fL (7.4-11.0); MONOCYTES # (AUTO) 0.6 x10^3/uL (0.3-0.8); MONOCYTES % (AUTO) 7.9 % (0.0-13.0); NEUTROPHILS # (AUTO) 5.6 x10^3/uL (2.2-4.8); NEUTROPHILS % (AUTO) 72.7 % (42.0-75.0); PLATELET COUNT 131 X10^3/uL (150.0-450.0); RED BLOOD COUNT 4.39 X10^6/uL (4.7-6.0); RED CELL DISTRIBUTION WIDTH 14.1 % (11.6-16.5); WHITE BLOOD COUNT 7.8 X10^3/uL (3.6-10.0)
[2017-06-19 12:56] LABS: HEMOGLOBIN A1C 8.6 %
[2017-06-19 13:34] LABS: ERYTHROCYTE SEDIMENTATION RATE 17 MM/HOUR (0-15)
== END ==
LOC: LAB 10:13
PROVIDERS: ATTEND Nurse Practitioner Family
DX: E11.40 Type 2 diabetes mellitus with diabetic neuropathy, unspecified (principal); M10.9 Gout, unspecified; E78.4 Other hyperlipidemia; R79.82 Elevated C-reactive protein (CRP); R70.0 Elevated erythrocyte sedimentation rate; R97.20 Elevated prostate specific antigen [PSA]; E55.9 Vitamin D deficiency, unspecified; Z86.39 Personal history of other endocrine, nutritional and metabolic disease; Z87.898 Personal history of other specified conditions
CPT/HCPCS: 36415; 80053; 80061; 82043; 82306; 83036; 84153; 84550; 85025; 85652; 86140

== ENCOUNTER 2017-07-01 10:54 | Emergency (ER) | payer OTHER ==
[2017-07-01 11:03] VITALS: BP 150/76; BMI 26.9
--- NOTE | 2017-07-01 12:25 | DR.EXTPAIN ---
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 2) PT HAS A ABCESS ON HIS MIDDLE BACK FOR YEARS.FAMILY HAS BEEN SMASHING IT. 3) THINKS HE HAS A UTI. 4) RIGHT KNEE PAIN FROM FALL - Nurses notes reviewed Nurses Notes Review: Yes - Source History Provided: Patient, Family Member - Mode of arrival Mode of Arrival: Wheelchair - Timing Onset of Chief Complaint: 06/16/17 - Context History of: Gout, Arthritis - Associated signs and symptoms Associated Signs and Symptoms: Pain - Other history Other History: Pt with abscess on back present x 1 year or more. Family has been 'smashing it' but it recurs. Just started on Keflex for same by PCP yesterday. Pt concerned re: fall 5-6 days ago. Apparently he landed on this abscess. Also c/o left knee pain, landed on that as well. Left knee with hx gout, arthritis PMH - PMH Past Medical History: Yes Past Medical History: Arthritis, Asthma, COPD, Coronary Artery Disease, Dementia , Diabetes, Dyslipidemia, Hypertension, [place] Past Surgical History: Yes Surgical History: Angioplasty/Stents, CABG/Valve Surgery, Ortho Surgery, Tonsillectomy - Family History History of Family Medical Conditions: Yes Family Medical History: Diabetes Mellitus, [place], Coronary Artery Disease - Social History Does patient currently use any type of tobacco product: No Have you used tobacco products in the last 12 months: No Type of Tobacco Use: None Does any household member use tobacco: No Alcohol Use: None Do you use any recreational Drugs:: No Lives With: Family Lives Where: Home - infectious screening In the last 2 months have you had wt loss of >10#?: NO Have you had fever, night sweats or hemotysis?: No Have you traveled outside the country in the last 6 months?: No Isolation: Standard ROS - Review of Systems Constitutional: No Symptoms Reported Eyes: No Symptoms Reported ENTM: No Symptoms Reported Respiratoy: Short of Breath (chronic SOB, has outpt order for CXR. Will get here in ER ) Cardiovascular: No Symptoms Reported, Other (worried about pacemaker but no cardiac complaints) Gastrointestinal/Abdominal: No Symptoms Reported Genitourinary: No Symptoms Reported Neurological: No Symptoms Reported Musculoskeletal: Back Pain, Joint Pain, Left, Knee Integumentary: Lesions Hematologic/Lymphatic: No Symptoms Reported Endocrine: No Symptoms Reported Psychiatric: No Symptoms Reported All Other Systems: Reviewed and Negative PE - Vital Signs Vitals: Temperature 98.9 F Pulse Rate 60 Respiratory Rate 16 Blood Pressure [Right Arm] 181/97 Blood Pressure [Left Arm] 133/81 Blood Pressure 150/76 O2 Sat by Pulse Oximetry 100 - General Limitations: No Limitations General Appearance: Alert, In No Apparent Distress - Head Head Exam: Normal Inspection - Eyes Eye exam: Normal Appearance - ENT ENT Exam: Normal Exam - Neck Neck Exam: Normal Inspection - Chest Chest Inspection: Normal Inspection - Respiratory Respiratory Exam: Normal Lung Sounds Bilat Respiratory Exam: Bilateral Clear to Auscultation - Cardiovascular Cardiovascular Exam: Regular Rate, Normal Rhythm, Normal Heart Sounds - Abdominal Exam Abdominal Exam: Normal Inspection, Normal Bowel Sounds, Soft - Extremities Extremities Exam: Other (left knee not swollen, mildly tender to palp, no palp bony deformity, no lac, FROM flex and extend) - Lower Extremities Knee Exam: Other (see above) - Neurological Neurological Exam: Alert, Oriented X3 - Psychiatric Psychiatric Exam: Normal Affect, Normal Mood ROR - XRAY XRAY Interpreted by: Radiologist XRAY Findings: CXR and left knee xrays nonacute Procedures - Incision and Drainage Site: mid back cutaneous abscess Blade Size: 11 I & D Procedure: sterile drapes applied, sterile dressing applied Progress: large pus expressed, probed to break up loculations. Pt rayne well, no immediate complications - Diagnosis Discharge Problem: Knee pain, left Fall Qualifiers: Encounter type: initial encounter Qualified Code(s): W19.XXXA - Unspecified fall, initial encounter Cutaneous abscess Qualifiers: Site of cutaneous abscess: other site Qualified Code(s): L02.818 - Cutaneous abscess of other sites - Discharge Plan Condition: Stable - Follow ups/Referrals Follow ups/Referrals: DAVID FIELD [Primary Care Provider] - 3 days - Instructions
--- NOTE | 2017-07-01 12:35 | RAD ---
HISTORY: Shortness of breath. Prior history of asthma, COPD, CAD, diabetes, hypertension, myocardial infarction. Study: Two-view chest Comparison: 08/13/2016. Findings: There again changes of CABG with median sternotomy sutures and metallic markers indicating coronary a rtery bypass grafts. Right-sided pacemaker is present with intact leads. Trachea is midline. There is cardiomegaly with aortic uncoiling. Hyperinflation of the lungs is seen with increased interstitial markings, likely indicating COPD. No infiltrate, pleural fluid, CHF or pneumothorax is seen. IMPRESSION: Postsurgical changes as noted above. Hypertensive configuration. Findings likely indicating COPD without acute cardiopulmonary disease. Reported By:
--- NOTE | 2017-07-01 12:37 | RAD ---
HISTORY: Fall, knee pain Study: Two-view right knee Comparison: 08/13/2016 Findings: There are again tricompartmental degenerative changes of the right knee which are of moderate severit y. No evidence of fracture or dislocation is seen. There is no evidence of joint effusion. There is m ild narrowing of the joint space compartments. Surgical clips are present likely from vein harvesting . Heavy calcifications are present within the arteries. IMPRESSION: Stable degenerative changes. No fracture, dislocation or joint effusion is seen. Reported By:
== END 2017-07-01 13:32 | disposition home or self-care (01) ==
LOC: ER 11:10
PROC: 0W9K3ZZ Drainage of Upper Back, Percutaneous Approach (ICD-10-PCS; principal; 2017-07-01)
DX: L02.818 Cutaneous abscess of other sites (principal); M25.562 Pain in left knee; W19.XXXA Unspecified fall, initial encounter
CPT/HCPCS: 71046; 73560; 87070; 87075; 99282